=== PATIENT | female | born 2000 | race Caucasian/White ===

== ENCOUNTER 2024-01-11 11:41 | Emergency (ER) | payer OTHER ==
[2024-01-11 12:42] VITALS: BMI 27.4
[2024-01-11 13:35] VITALS: BP 112/65; PULSE 18; RESP 18; TEMP 98.2
== END 2024-01-11 14:54 | disposition home or self-care (01) ==
LOC: JER 11:41
DX: R00.0 Tachycardia, unspecified (principal); V59.40XA Driver of pick-up truck or van injured in collision with unspecified motor vehicles in traffic accident, initial encounter; Y93.19 Activity, other involving water and watercraft; Y92.410 Unspecified street and highway as the place of occurrence of the external cause
CPT/HCPCS: 99282-25